=== PATIENT | male | born 1950 | race Caucasian/White ===

== ENCOUNTER 2022-03-09 15:53 | Observation (INO) ==
[2022-03-09 16:31] LABS: Basophils # 0.1 10*3/uL (0.0-0.2); Basophils % 0.6 % (0.0-0.8); Eosinophils # 0.4 10*3/uL (0.0-0.87); Eosinophils % 3.7 % (0.00-10.9); Hematocrit 45.8 VOL% (42.0-52.0); Hemoglobin 15.8 GM/DL (14.0-18.0); Immature Granulocytes % 0.4 %; Immature Granulocytes Absolute 0.04 #; Lymphocytes # 2.5 10*3/uL (1.4-4.0); Lymphocytes % 23.2 % (21.2-54.2); Mean Corpuscular HGB Conc 34.5 GM/DL (32-36); Mean Platelet Volume 10.4 FL (9.6-12.0); Monocytes # 0.7 10*3/uL (0.11-0.8); Monocytes % 6.4 % (1.7-12.7); Neutrophils % 65.7 % (38.7-73.9); Platelet Count 210 T/CUMM (130-400); Red Blood Count 4.98 MC/CUMM (3.8-5.5); White Blood Count 10.8 T/CUMM (4-12)
[2022-03-09 16:53] LABS: Alanine Aminotransferase 15 U/L (16-61); Albumin 4.1 G/DL (3.4-5.0); Alkaline Phosphatase 67 U/L (45-117); Aspartate Amino Transferase 11 U/L (0-37); Bilirubin,Total < 0.39 MG/DL (0.20-1.00); Blood Urea Nitrogen 13 MG/DL (7-18); Calcium 9.3 MG/DL (8.5-10.1); Carbon Dioxide 28 MMOL/L (21-32); Chloride 108 MMOL/L (98-107); Glucose 115 MG/DL (74-106); Osmolality,Calculated 283.1 MOS/KG (273-304); Potassium 3.4 MMOL/L (3.5-5.1); Sodium 142 MMOL/L (136-145); Total Protein 7.1 G/DL (6.4-8.2)
[2022-03-09] MEDS ORDERED: DILTIAZEM 25 MG/5 ML VIAL IV STA (18:47)
[2022-03-09] MEDS ORDERED: DILTIAZEM INJ 100 MG in SODIUM CHLORIDE 0.9% 100 ML IV SCH (19:00)
[2022-03-09] MEDS ORDERED: ENOXAPARIN 100 MG/ML SYRINGE SUBCUT STA (19:01)
[2022-03-09] MEDS ORDERED: GLUCAGON 1 MG VIAL IM PRN (20:12)
[2022-03-09] MEDS ORDERED: ALBUTEROL 2.5 MG/3 ML NEB RESP TX PRN (20:19)
[2022-03-09] MEDS ORDERED: ONDANSETRON 4 MG/2 ML VIAL IV PRN (20:19)
[2022-03-09] MEDS ORDERED: ACETAMINOPHEN 325 MG TABLET PO PRN (20:19)
[2022-03-09] MEDS ORDERED: NICOTINE 21 MG/24 HR PATCH TRANSDERM PRN (20:19)
[2022-03-09] MEDS ORDERED: POTASSIUM CHLORIDE 20 MEQ TABLET PO STA (20:36)
[2022-03-09] MEDS ORDERED: MAGNESIUM SULF RIDER 4 GM/100 ML PREMIX IV PRN (20:38)
[2022-03-09] MEDS ORDERED: POTASSIUM CHLORIDE 20 MEQ TABLET PO PRN (20:38)
[2022-03-09] MEDS ORDERED: MAGNESIUM SULF RIDER 2 GM/50 ML PREMIX IV PRN (20:38)
[2022-03-09] MEDS ORDERED: POTASSIUM CHLORIDE RIDER 10 MEQ/100 ML PREMIX IV PRN (20:38)
[2022-03-09] MEDS ORDERED: DEXTROSE 10% 250 ML BAG IV PRN (20:39)
[2022-03-09] MEDS ORDERED: METOPROLOL TARTRATE 50 MG TABLET PO SCH (21:00)
[2022-03-09] MEDS ORDERED: ALBUTEROL SULFATE INH PRN (23:08)
[2022-03-10] MEDS: DOCUSATE SODIUM 100 MG CAPSULE PO SCH ×3 (00:24→22:20)
[2022-03-10 04:16] LABS: Basophils % 0.5 % (0.0-0.8); Eosinophils # 0.4 10*3/uL (0.0-0.87); Eosinophils % 4.5 % (0.00-10.9); Hematocrit 43.2 VOL% (42.0-52.0); Hemoglobin 14.3 GM/DL (14.0-18.0); Immature Granulocytes % 0.5 %; Immature Granulocytes Absolute 0.04 #; Lymphocytes % 34.2 % (21.2-54.2); Mean Corpuscular HGB Conc 33.1 GM/DL (32-36); Mean Corpuscular Volume 94.1 FL (87-102); Mean Platelet Volume 11.2 FL (9.6-12.0); Monocytes # 0.7 10*3/uL (0.11-0.8); Neutrophils % 52.3 % (38.7-73.9); Platelet Count 183 T/CUMM (130-400); Red Blood Count 4.59 MC/CUMM (3.8-5.5); Red Cell Distribution Width 13.2 % (9.3-17.3); White Blood Count 8.8 T/CUMM (4-12)
[2022-03-10 04:22] LABS: PT Patient Result 11.4 SECS (10.5-12.0)
[2022-03-10 04:36] LABS: Calcium 8.8 MG/DL (8.5-10.1); Osmolality,Calculated 281.1 MOS/KG (273-304); Potassium 3.8 MMOL/L (3.5-5.1); Risk Ratio 3.19; Thyroid Stimulating Hormone 2.22 uIU/ml (0.358-3.74); VLDL Cholesterol 19.2 MG/DL
[2022-03-10] MEDS: amLODIPine 10 MG TABLET PO SCH (09:00)
[2022-03-10] MEDS ORDERED: ENOXAPARIN 100 MG/ML SYRINGE SUBCUT SCH (09:00)
[2022-03-10] MEDS: PANTOPRAZOLE 40 MG TABLET PO SCH (09:00)
[2022-03-10] MEDS ORDERED: ASPIRIN EC 325 MG TABLET PO SCH (09:00)
[2022-03-10] MEDS: METOPROLOL TARTRATE 25 MG TABLET PO SCH ×2 (09:00→21:24)
[2022-03-10] MEDS: NON-FORMULARY MEDICATION (Fluticasone-Umeclidin-Vilanter [Trelegy Ellipta] 100-62.5-25 mcg INH SCH (09:00)
[2022-03-10] MEDS: APIXABAN 5 MG TABLET PO SCH ×2 (09:00→21:24)
[2022-03-10] MEDS: LISINOPRIL 40MG TABLET PO SCH (09:00)
[2022-03-10] MEDS: CHOLECALCIFEROL 2000 MG PO SCH (09:00)
[2022-03-10] MEDS: EZETIMIBE 10 MG TABLET PO SCH (09:01)
[2022-03-10] MEDS: ASCORBIC ACID 500 MG TABLET PO SCH ×2 (09:01→21:24)
[2022-03-10] MEDS ORDERED: ATORVASTATIN 80 MG TABLET PO SCH (21:00)
[2022-03-11 08:05] LABS: Basophils % 0.5 % (0.0-0.8); Eosinophils # 0.4 10*3/uL (0.0-0.87); Eosinophils % 4.7 % (0.00-10.9); Hematocrit 43.3 VOL% (42.0-52.0); Hemoglobin 14.6 GM/DL (14.0-18.0); Immature Granulocytes % 0.3 %; Immature Granulocytes Absolute 0.02 #; Lymphocytes # 2.3 10*3/uL (1.4-4.0); Mean Corpuscular HGB Conc 33.7 GM/DL (32-36); Mean Corpuscular Volume 93.7 FL (87-102); Mean Platelet Volume 10.3 FL (9.6-12.0); Monocytes # 0.5 10*3/uL (0.11-0.8); Neutrophils % 58.5 % (38.7-73.9); Platelet Count 165 T/CUMM (130-400); Red Blood Count 4.62 MC/CUMM (3.8-5.5); Red Cell Distribution Width 12.9 % (9.3-17.3); White Blood Count 7.7 T/CUMM (4-12)
[2022-03-11 08:07] VITALS: BP 144/69
[2022-03-11 08:37] LABS: Albumin 3.5 G/DL (3.4-5.0); Bilirubin,Total 0.6 MG/DL (0.20-1.00); Calcium 8.7 MG/DL (8.5-10.1); Osmolality,Calculated 283.3 MOS/KG (273-304); Potassium 3.5 MMOL/L (3.5-5.1); Total Protein 6.5 G/DL (6.4-8.2)
[2022-03-11] MEDS ORDERED: POTASSIUM CHLORIDE 20 MEQ TABLET PO ONE (09:27)
[2022-03-11] MEDS: METOPROLOL TARTRATE 25 MG TABLET PO SCH (10:06)
[2022-03-11] MEDS: EZETIMIBE 10 MG TABLET PO SCH (10:06)
[2022-03-11] MEDS: DOCUSATE SODIUM 100 MG CAPSULE PO SCH (10:06)
[2022-03-11] MEDS: amLODIPine 10 MG TABLET PO SCH (10:07)
[2022-03-11] MEDS: PANTOPRAZOLE 40 MG TABLET PO SCH (10:07)
[2022-03-11] MEDS: APIXABAN 5 MG TABLET PO SCH (10:10)
[2022-03-11] MEDS: LISINOPRIL 40MG TABLET PO SCH (14:39)
[2022-03-11] MEDS: NON-FORMULARY MEDICATION (Fluticasone-Umeclidin-Vilanter [Trelegy Ellipta] 100-62.5-25 mcg INH SCH (14:39)
[2022-03-11] MEDS: CHOLECALCIFEROL 2000 MG PO SCH (14:39)
[2022-03-11] MEDS: ASCORBIC ACID 500 MG TABLET PO SCH (14:40)
[2022-03-12] MEDS ORDERED: ASPIRIN EC 81 MG TABLET PO SCH (09:00)
== END 2022-03-11 13:00 | disposition home or self-care (01) ==
LOC: N.ED 15:53 → N.EDINP 15:53 → N.TELEN 03-10 12:11
PROVIDERS: ADMIT Hospitalist; ATTEND Hospitalist